=== PATIENT | male | born 1950 | race Caucasian/White ===

== ENCOUNTER 2020-01-08 11:28 | Outpatient (CLI) | payer MEDICARE, SELFPAY ==
--- NOTE | ~2020-01-08 | XR_ITS ---
EXAMINATION: XR patella LT DATE: 01/08/2020 11:56 INDICATION: Left knee pain TECHNIQUE: AP, lateral and sunrise views of the left patella were obtained. COMPARISON: Left knee radiographs dated 06/09/2005 FINDINGS: Alignment is normal. No fracture. Joint space at the left including the patellofemoral compartment ar e normal. Tiny patellar marginal osteophytes are present. No left knee joint effusion. Unchanged bone island at the medial femoral condyle. IMPRESSION: 1. Minimal left patellofemoral osteoarthritis with tiny marginal osteophytes but relatively preserved joint space. Reviewed, dictated and finalized at location B. IMPRESSION: 1. Minimal left patellofemoral osteoarthritis with tiny marginal osteophytes bu t relatively preserved joint space.
== END 2020-01-08 11:29 | disposition home or self-care (01) ==
PROVIDERS: PCP Family Medicine; Visit Provider Family Medicine
DX: M17.12 Unilateral primary osteoarthritis, left knee (principal); M25.762 Osteophyte, left knee
CPT/HCPCS: 73560

== ENCOUNTER 2020-07-06 07:43 | Outpatient (CLI) | payer MEDICARE, SELFPAY ==
--- NOTE | ~2020-07-06 | XR_ITS ---
EXAMINATION: XR cervical spine min 6V EXAM DATE: 07/06/2020 08:11 INDICATION: Cervicalgia. TECHNIQUE: Cervical spine frontal, lateral, lateral swimmers, and open-mouth odontoid projections. A dditional lateral flexion and lateral extension projections obtained. Comparison is made to prior exa mination from 12/07/2016. FINDINGS: Osseous fusion of the C3-4 vertebral bodies. Moderate disc disease C5-6 and 6-7, mild to m oderate at C3-4. Vertebral bodies are aligned on all the lateral projections. There is moderate to se jerome cervical arthropathy, could correlate with patient's MR cervical spine report from 2019. There are no acute fractures identified. Prevertebral soft tissue and pre-dens space are within nor mal limits. The odontoid process is intact. The lateral masses of C1 line up with C2. Compared to 20 17, difficult to appreciate any significant interval change. IMPRESSION: 1. Moderate lower cervical disc disease. Moderate to severe arthropathy. 2. Correlate with patient's prior MR 2019. Reviewed, dictated and finalized at location A.
[2020-07-06 08:26] LABS: Eosinophils Absolute Auto 0.1 K/mm3 (0-0.3); Eosinophils Percent Auto 2.9 % (0-4.4); Hematocrit 42.4 % (42.0-52.0); Hemoglobin 14.2 g/dL (14.0-18.0); Immature Granulocyte Absolute 0.01 K/mm3 (0.00-0.031); Immature Granulocyte Percent A 0.2 % (0-0.5); Lymphocytes Absolute Auto 1.35 K/mm3 (0.9-3.2); Lymphocytes Percent Auto 33.2 % (18.3-44.2); Mean Corpuscular HGB Conc 33.5 g/dl (32-36); Mean Corpuscular Hemoglobin 32.1 pg (26-34); Mean Corpuscular Volume 95.7 fl (80-100); Mean Platelet Volume 9.5 fl (7.4-10.4); Monocytes Absolute Auto 0.5 K/mm3 (0.1-0.6); Monocytes Percent Auto 11.1 % (2.6-8.5); Neutrophils Absolute Auto 2.1 K/mm3 (1.3-6.7); Neutrophils Percent Auto 51.6 % (45.5-73.1); Platelet Count Result 246 k/mm3 (150-375); Red Blood Count 4.43 M/mm3 (4.6-6.20); Red Cell Distribution Width 12.8 % (11.5-14.5); White Blood Count 4.1 K/mm3 (4.5-10.0)
[2020-07-06 08:41] LABS: Alanine Aminotransferase 33 U/L (4-50); Albumin Level 4.5 g/dL (3.5-5.1); Alkaline Phosphatase 54 U/L (38-126); Anion Gap 5 mmol/L (8-16); Aspartate Amino Transferase 34 U/L (17-59); Bilirubin,Total 0.5 mg/dL (0.2-1.3); Blood Urea Nitrogen 14 mg/dL (9-20); Calcium 9.1 mg/dL (8.4-10.2); Carbon Dioxide 30 mmol/L (22-30); Chloride 106 mmol/L (98-107); Cholesterol 114 mg/dL (0-200); Estimated Glomerular Filt Rate > 60; Glucose 112 mg/dL (75-110); HDL Direct 51 mg/dL; Potassium 4.4 mmol/L (3.4-5.0); Sodium 141 mmol/L (137-145); Triglycerides 90 mg/dL (<150); Uric Acid 3.9 mg/dL (3.5-8.5)
[2020-07-06 08:52] LABS: LDL Cholesterol Direct 45 mg/dL
[2020-07-06 09:12] LABS: Prostate Specific Antigen 1.7 ng/mL (< OR = 4.0)
== END 2020-07-06 07:44 | disposition home or self-care (01) ==
PROVIDERS: PCP Family Medicine; Visit Provider Family Medicine
DX: M54.2 Cervicalgia (principal); I10 Essential (primary) hypertension; E78.2 Mixed hyperlipidemia; Z13.220 Encounter for screening for lipoid disorders; N40.0 Benign prostatic hyperplasia without lower urinary tract symptoms; G62.9 Polyneuropathy, unspecified; M1A.09X0 Idiopathic chronic gout, multiple sites, without tophus (tophi); M50.30 Other cervical disc degeneration, unspecified cervical region
CPT/HCPCS: 36415; 72052; 80048; 80061; 80076; 82607; 84153; 84443; 84550; 85025

== ENCOUNTER 2020-08-05 08:20 | Outpatient (CLI) | payer MEDICARE, SELFPAY ==
[2020-08-05 09:21] LABS: Basophils Percent Auto 0.7 % (0.2-1.2); Eosinophils Absolute Auto 0.2 K/mm3 (0-0.3); Eosinophils Percent Auto 3.6 % (0-4.4); Hematocrit 44.7 % (42.0-52.0); Hemoglobin 14.7 g/dL (14.0-18.0); Immature Granulocyte Absolute 0.01 K/mm3 (0.00-0.031); Immature Granulocyte Percent A 0.2 % (0-0.5); Lymphocytes Absolute Auto 1.14 K/mm3 (0.9-3.2); Lymphocytes Percent Auto 25.7 % (18.3-44.2); Mean Corpuscular HGB Conc 32.9 g/dl (32-36); Mean Corpuscular Hemoglobin 31.7 pg (26-34); Mean Corpuscular Volume 96.3 fl (80-100); Mean Platelet Volume 9.8 fl (7.4-10.4); Monocytes Absolute Auto 0.4 K/mm3 (0.1-0.6); Monocytes Percent Auto 9.7 % (2.6-8.5); Neutrophils Absolute Auto 2.7 K/mm3 (1.3-6.7); Neutrophils Percent Auto 60.1 % (45.5-73.1); Platelet Count Result 220 k/mm3 (150-375); Red Blood Count 4.64 M/mm3 (4.6-6.20); White Blood Count 4.4 K/mm3 (4.5-10.0)
[2020-08-05 10:12] LABS: Hemoglobin A1C 5.7 % (<5.7)
== END 2020-08-05 08:21 | disposition home or self-care (01) ==
LOC: ANHLAB 08:24
PROVIDERS: PCP Family Medicine; Visit Provider Physician Assistant Medical
DX: D72.819 Decreased white blood cell count, unspecified (principal); R73.09 Other abnormal glucose
CPT/HCPCS: 36415; 83036; 85025

== ENCOUNTER 2020-11-05 07:38 | Outpatient (CLI) | payer MEDICARE, SELFPAY ==
[2020-11-05 08:24] LABS: Basophils Percent Auto 0.7 % (0.2-1.2); Eosinophils Absolute Auto 0.2 K/mm3 (0-0.3); Eosinophils Percent Auto 3.7 % (0-4.4); Hematocrit 43.8 % (42.0-52.0); Hemoglobin 14.2 g/dL (14.0-18.0); Immature Granulocyte Absolute 0.01 K/mm3 (0.00-0.031); Immature Granulocyte Percent A 0.2 % (0-0.5); Lymphocytes Absolute Auto 1.37 K/mm3 (0.9-3.2); Mean Corpuscular HGB Conc 32.4 g/dl (32-36); Mean Corpuscular Hemoglobin 30.9 pg (26-34); Mean Corpuscular Volume 95.4 fl (80-100); Mean Platelet Volume 9.7 fl (7.4-10.4); Monocytes Absolute Auto 0.4 K/mm3 (0.1-0.6); Monocytes Percent Auto 10.7 % (2.6-8.5); Neutrophils Percent Auto 50.7 % (45.5-73.1); Platelet Count Result 213 k/mm3 (150-375); Red Blood Count 4.59 M/mm3 (4.6-6.20); Red Cell Distribution Width 13.2 % (11.5-14.5)
[2020-11-05 09:46] LABS: Hemoglobin A1C 5.8 % (<5.7)
== END 2020-11-05 07:39 | disposition home or self-care (01) ==
PROVIDERS: PCP Family Medicine; Visit Provider Physician Assistant Medical
DX: D72.819 Decreased white blood cell count, unspecified (principal); R73.03 Prediabetes
CPT/HCPCS: 36415; 83036; 85025

== ENCOUNTER 2020-11-30 12:33 | Outpatient (CLI) | payer MEDICARE, SELFPAY ==
[2020-11-30 13:30] LABS: Basophils Absolute Auto 0.1 K/mm3 (0.0-0.1); Eosinophils Absolute Auto 0.1 K/mm3 (0-0.3); Eosinophils Percent Auto 2.8 % (0-4.4); Hematocrit 42.8 % (42.0-52.0); Hemoglobin 14.1 g/dL (14.0-18.0); Immature Granulocyte Absolute 0.01 K/mm3 (0.00-0.031); Immature Granulocyte Percent A 0.2 % (0-0.5); Lymphocytes Absolute Auto 1.47 K/mm3 (0.9-3.2); Lymphocytes Percent Auto 29.7 % (18.3-44.2); Mean Corpuscular HGB Conc 32.9 g/dl (32-36); Mean Corpuscular Hemoglobin 31.3 pg (26-34); Mean Corpuscular Volume 94.9 fl (80-100); Mean Platelet Volume 10.2 fl (7.4-10.4); Monocytes Absolute Auto 0.4 K/mm3 (0.1-0.6); Monocytes Percent Auto 8.5 % (2.6-8.5); Neutrophils Absolute Auto 2.9 K/mm3 (1.3-6.7); Neutrophils Percent Auto 57.8 % (45.5-73.1); Platelet Count Result 231 k/mm3 (150-375); Red Blood Count 4.51 M/mm3 (4.6-6.20)
--- NOTE | 2020-11-30 13:34 | PC.NURSE ---
Patient was in the lab to have blood work drawn, and became clammy and the product support technician state he had 10-15 seconds of Loss of consciousness, VS per Cassia Strickland RN was at 1305: BP 90/50, Pulse 52, Respiratory rate 14, and O2sats 99% on Room air. Brought to infusion center per RN and Lab staff, placed in the bed, cool wash cloth to forehead and feet elevated. I received him from DEAN AVILA whom tried to call Dr Salas but did not receive any call backs. He was awake and alert orientated x 3, he stayed flat to have his labs drawn. VS at 1325: Pulse 66, Respiratory rate 20, Pulse ox on Room air 100%m and Blood pressure on Right arm 130/65. Patient moved to a sitting position and after 5 minutes moved to a standing position. He stated he feels better and will be drinking more water this evening. He refused a wheelchair out to the car.
[2020-11-30 20:39] LABS: Alanine Aminotransferase 42 U/L (4-50); Albumin Level 4.5 g/dL (3.5-5.1); Alkaline Phosphatase 60 U/L (38-126); Anion Gap 9 mmol/L (8-16); Aspartate Amino Transferase 35 U/L (17-59); Bilirubin,Total 0.4 mg/dL (0.2-1.3); Blood Urea Nitrogen 19 mg/dL (9-20); Calcium 9.7 mg/dL (8.4-10.2); Carbon Dioxide 24 mmol/L (22-30); Chloride 104 mmol/L (98-107); Estimated Glomerular Filt Rate > 60; Glucose 115 mg/dL (65-110); Potassium 4.3 mmol/L (3.4-5.0); Sodium 137 mmol/L (137-145)
[2020-11-30 20:43] LABS: Iron 92 ug/dL (49-181)
[2020-11-30 20:58] LABS: Percent Iron Saturation 26 % (20-50)
[2020-11-30 21:45] LABS: Folic Acid 9.6 ng/mL (2.76->20)
== END 2020-11-30 12:34 | disposition home or self-care (01) ==
PROVIDERS: PCP Family Medicine; Visit Provider Internal Medicine Hematology & Oncology
DX: D72.819 Decreased white blood cell count, unspecified (principal); D50.9 Iron deficiency anemia, unspecified
CPT/HCPCS: 36415; 80053; 82607; 82728; 82746; 83540; 83550; 85025; 86038

== ENCOUNTER 2020-12-17 08:05 | Outpatient (CLI) | payer MEDICARE, SELFPAY ==
--- NOTE | ~2020-12-17 | US_ITS ---
EXAMINATION: US abdomen complete EXAM DATE: 12/17/2020 09:02 INDICATION: Unspecified leukopenia. TECHNIQUE: Multiple grayscale and Doppler images of the complete abdomen were obtained (by a technolo gist who performed the scan) and subsequently reviewed. There is no prior study for comparison. FINDINGS: The abdominal aorta has mild tortuosity and atherosclerosis, but is normal in caliber. Visualized p ortion IVC is patent. The pancreatic head and body are normal in appearance. The pancreatic tail i s not visualized. The liver has normal echogenicity and contour. There are no focal liver lesions identified. There is no evidence of intrahepatic biliary duct dilation. Portal venous flow was seen in the hepatopedal , normal direction and has normal Doppler waveform. Common bile duct measures 2 mm, which is normal. The gallbladder wall is mildly thickened but probabl y due to gallbladder being undistended at time of imaging. No sonographic evidence of pericholecysti c fluid. There is no cholelithiases. Technologist performing exam reports patient did not demonstrat e sonographic Gomez's sign. Please note that this sign is less reliable in patients who have receiv ed pain medication. Right kidney: There is normal contour and echogenicity. It measures 11.4 x 5.1 x 6.1 centimeters. There are no focal renal lesions identified. There is no hydronephrosis. Left kidney: There is normal contour and echogenicity. It measures 11.0 x 5.8 x 6.4 centimeters. T here are no focal renal lesions identified. There is no hydronephrosis. The spleen measures 11.8 centimeters and is morphologically normal. IMPRESSION: 1. Unremarkable complete abdominal ultrasound exam. Reviewed, dictated and finalized at location B.
== END 2020-12-17 08:06 | disposition home or self-care (01) ==
PROVIDERS: PCP Family Medicine; Visit Provider Internal Medicine Hematology & Oncology
DX: D72.819 Decreased white blood cell count, unspecified (principal)
CPT/HCPCS: 76700

== ENCOUNTER 2021-06-08 08:47 | Outpatient (CLI) | payer MEDICARE, SELFPAY ==
[2021-06-08 09:30] LABS: Basophils Absolute Auto 0.1 K/mm3 (0.0-0.1); Basophils Percent Auto 1.2 % (0.2-1.2); Eosinophils Absolute Auto 0.2 K/mm3 (0-0.3); Eosinophils Percent Auto 3.7 % (0-4.4); Hematocrit 43.2 % (42.0-52.0); Hemoglobin 14.2 g/dL (14.0-18.0); Lymphocytes Absolute Auto 1.23 K/mm3 (0.9-3.2); Lymphocytes Percent Auto 30.6 % (18.3-44.2); Mean Corpuscular HGB Conc 32.9 g/dl (32-36); Mean Corpuscular Hemoglobin 32.1 pg (26-34); Mean Corpuscular Volume 97.7 fl (80-100); Monocytes Absolute Auto 0.3 K/mm3 (0.1-0.6); Monocytes Percent Auto 8.5 % (2.6-8.5); Neutrophils Absolute Auto 2.3 K/mm3 (1.3-6.7); Platelet Count Result 196 k/mm3 (150-375); Red Blood Count 4.42 M/mm3 (4.6-6.20); Red Cell Distribution Width 13.2 % (11.5-14.5)
[2021-06-08 10:51] LABS: Folic Acid 15.7 ng/mL (2.76->20)
== END 2021-06-08 08:48 | disposition home or self-care (01) ==
LOC: ANHLAB 08:53
PROVIDERS: PCP Family Medicine; Visit Provider Internal Medicine Hematology & Oncology
DX: D72.819 Decreased white blood cell count, unspecified (principal)
CPT/HCPCS: 36415; 82607; 82746; 85025

== ENCOUNTER 2021-12-06 08:01 | Outpatient (CLI) | payer MEDICARE, SELFPAY ==
[2021-12-06 08:16] LABS: Hematocrit 42.9 % (42.0-52.0); Mean Corpuscular HGB Conc 32.6 g/dl (32-36); Mean Corpuscular Hemoglobin 31.7 pg (26-34); Mean Corpuscular Volume 97.3 fl (80-100); Mean Platelet Volume 9.7 fl (7.4-10.4); Platelet Count Result 208 k/mm3 (150-375); Red Blood Count 4.41 M/mm3 (4.6-6.20); Red Cell Distribution Width 13.2 % (11.5-14.5); White Blood Count 4.6 K/mm3 (4.5-10.0)
[2021-12-06 09:13] LABS: Alanine Aminotransferase 43 U/L (6-50); Albumin Level 4.6 g/dL (3.5-5.1); Alkaline Phosphatase 64 U/L (38-126); Anion Gap 10 mmol/L (8-16); Aspartate Amino Transferase 38 U/L (17-59); Bilirubin,Total 0.4 mg/dL (0.2-1.3); Blood Urea Nitrogen 18 mg/dL (9-20); Calcium 9.5 mg/dL (8.4-10.2); Carbon Dioxide 27 mmol/L (22-30); Chloride 104 mmol/L (98-107); Cholesterol 144 mg/dL (0-200); Estimated Glomerular Filt Rate > 60; Glucose 103 mg/dL (65-110); HDL Direct 60 mg/dL; Potassium 3.8 mmol/L (3.4-5.0); Sodium 141 mmol/L (137-145); Triglycerides 110 mg/dL (<150); Uric Acid 4.6 mg/dL (3.5-8.5)
[2021-12-06 09:25] LABS: LDL Cholesterol Direct 50 mg/dL
[2021-12-06 09:43] LABS: Prostate Specific Antigen 1.1 ng/mL (< OR = 4.0)
== END 2021-12-06 08:02 | disposition home or self-care (01) ==
PROVIDERS: PCP Family Medicine; Visit Provider Family Medicine
DX: G62.9 Polyneuropathy, unspecified (principal); I10 Essential (primary) hypertension; E78.2 Mixed hyperlipidemia; Z13.220 Encounter for screening for lipoid disorders; N40.0 Benign prostatic hyperplasia without lower urinary tract symptoms; Z12.5 Encounter for screening for malignant neoplasm of prostate; M1A.09X0 Idiopathic chronic gout, multiple sites, without tophus (tophi)
CPT/HCPCS: 36415; 80048; 80061; 80076; 82607; 84153; 84443; 84550; 85027; G0103

== ENCOUNTER 2022-02-13 08:32 | Outpatient (CLI) | payer MEDICARE, SELFPAY ==
--- NOTE | 2022-03-06 10:01 | WPDSLEEPSTUD ---
Sleep Study Date of Study: 02/13/22 Ordering Provider: Samm Null MD Interpreting Physician: Melissa Agustin MD Sleep Study Type: Split Polysomnogram Height: 1.73 m Weight: 86.183 kg Body Mass Index: 28.8 Neck Circumference (inches): 16.5 [place]: 9 Reason for Sleep Study Constantly feeling tired, difficulty sleeping Sleep History Suhas Renner is a 71-year-old who has poor quality sleep. He has racing thoughts when it is time to go to sleep. He does not awaken from sleep feeling short of breath. Occasionally he has heartburn belching or coughing at night that wakes him. He rarely snores and it is left never loud enough to bother others, occasionally has trouble sleeping with a cold, there is no shortness of breath or gasping for breath at night. Occasionally there is excessive sweating at night. Patient denies heart pounding or beating irregularly at night. He frequently falls asleep during the day, occasionally falls asleep involuntarily, never falls asleep while driving. There is no loss of muscle tone with strong emotion. There is no daytime difficulties due to excessive sleepiness. There is no paralysis on waking or falling asleep and no vivid dreamlike scenes upon awakening or falling asleep. Patient is not afraid to go to sleep. He occasionally has nightmares. He frequently remembers his dreams and has racing thoughts. He occasionally feels sad or depressed. He frequently has anxiety. He occasionally has muscular tension. He rarely notices parts of his body jerking. He occasionally kicks at night, occasionally has crawling and aching feelings in his legs and leg pain at night. He does not have morning jaw pain. He occasionally grinds his teeth during sleep. He constantly is bothered by pain during the day. He occasionally is awakened by pain at night. He frequently wakes up feeling stiff in the morning. He occasionally wakes up with sore achy muscles. He constantly wakes up with pain in the neck and spine. Normal bedtime is between 9:00 p.m. and 10:00 p.m. taking an hour to fall asleep typically waking 2 to 3 times to urinate. He wakes the morning between 4 and 5:00 a.m.. He takes naps in the afternoon or evening. A short nap lasting 10 or 15 minutes is not refreshing. He is usually drowsy for 3 hours or longer after waking. He feels better in the evening compared to other times of day. He frequently has memory or concentration problems. He occasionally has morning headaches. He never awakens feeling refreshed. Habits: caffeine 4-5 cups a day. Alcohol 5-6 beers a day. No recreational drugs. [facility] Past Medical History Medical History Apnea BMI 27.0-27.9,adult BMI 28.0-28.9,adult BPH (benign prostatic hyperplasia) Essential (primary) hypertension Insect bite Joint pain Mixed hyperlipidemia Mucous cyst of toe Patellar pain Viral wart on finger Family History Family History Mother Carcinoma of colon Sibling Carcinoma of colon Family history of lung cancer Family history of heart disease in male family member before age 55 Social History Social History Smoking status: Never smoker Alcohol intake: never Medications Home Medications Medication Instructions Recorded Confirmed Type aspirin 81 mg tablet,delayed 81 mg PO DAILY 01/08/20 01/13/22 History release (Adult Low Dose Aspirin) rosuvastatin 20 mg tablet See Rx Instructions .Route 09/01/21 01/13/22 Rx .COMPLEX #90 tabs tamsulosin 0.4 mg capsule (Flomax) 0.4 mg PO DAILY #90 caps 10/13/21 01/13/22 Rx cyanocobalamin (vitamin B-12) 1,000 mcg PO DAILY 12/02/21 01/13/22 History 1,000 mcg tablet (Vitamin B-12) allopurinol 300 mg tablet See Rx Instructions .Route 12/14/21 01/13/22 Rx .COMPLEX #90 tabs amlodipine 5 mg tablet See Rx Instructi
[2022-03-06 11:46] VITALS: BMI 28.8
== END 2022-02-14 06:32 | disposition home or self-care (01) ==
LOC: ANHCSM 08:33
PROVIDERS: PCP Family Medicine; Visit Provider Family Medicine
DX: G47.30 Sleep apnea, unspecified (principal); G47.33 Obstructive sleep apnea (adult) (pediatric)
CPT/HCPCS: 95811

== ENCOUNTER 2023-03-28 09:15 | Outpatient (CLI) | payer MEDICARE, SELFPAY ==
--- NOTE | 2023-03-28 10:15 | NEURO_ITS ---
Impression: # Borderline diabetic complains of lower back pain and numbness of lower extremities. # Normal motor and sensory Nerve Conduction Study. # Normal needle/EMG without myotonia, fibrillations or chronic degenerative changes. # Clinical correlation recommended. Possibility of small fiber neuropathy. Nerve Conduction Studies Anti Sensory Summary Table Stim Site NR Peak (ms) P-T Amp (?V) Site1 Site2 Delta-P (ms) Dist (cm) Kirit (m/s) Left Saphenous Anti Sensory (Ant Med Mall) 14cm 3.8 1.8 14cm Ant Med Mall 3.8 0.0 Right Saphenous Anti Sensory (Ant Med Mall) 14cm 3.8 7.6 14cm Ant Med Mall 3.8 0.0 Left Sup Fibular Anti Sensory (Ant Lat Mall) 14 cm 3.6 12.5 14 cm Ant Lat Mall 3.6 16.0 44 Right Sup Fibular Anti Sensory (Ant Lat Mall) 14 cm 3.5 3.6 14 cm Ant Lat Mall 3.5 16.0 46 Left Sural Anti Sensory (Lat Mall) Calf 3.7 4.3 Calf Lat Mall 3.7 16.0 43 Right Sural Anti Sensory (Lat Mall) Calf 3.9 14.3 Calf Lat Mall 3.9 16.0 41 Motor Summary Table Stim Site NR Onset (ms) O-P Amp (mV) Site1 Site2 Delta-0 (ms) Dist (cm) Kirit (m/s) Left Peroneal Motor (Vastus Med) Ankle 3.6 2.1 Popit Ankle 8.3 35.0 42 Popit 11.9 1.5 Right Peroneal Motor (Vastus Med) Ankle 3.6 5.8 Popit Ankle 8.1 38.0 47 Popit 11.7 4.4 Left Tibial Motor (Abd Riggs Brev) Ankle 4.0 3.3 Knee Ankle 8.8 40.0 45 Knee 12.8 3.3 Right Tibial Motor (Abd Riggs Brev) Ankle 4.1 3.2 Knee Ankle 8.6 41.0 48 Knee 12.7 3.1 F Wave Studies NR F-Lat (ms) L-R F-Lat (ms) Left Peroneal (Mrkrs) (EDB) 54.33 0.04 Right Peroneal (Mrkrs) (EDB) 54.36 0.04 Left Tibial (Mrkrs) (Abd Hallucis) 55.01 0.72 Right Tibial (Mrkrs) (Abd Hallucis) 54.29 0.72 EMG Side Muscle Nerve Root Ins Act Fibs Amp Dur Recrt Comment Right AntTibialis Dp Br Fibular L4-5 Nml Nml Nml Nml Nml Right Gastroc Tibial S1-2 Nml Nml Nml Nml Nml Right Fibularis Long Sup Br Fibular L5-S1 Nml Nml Nml Nml Nml Right Flex Dig Long Tibial L5-S2 Nml Nml Nml Nml Nml Right Ext Dig Brev Dp Br Fibular L5, S1 Nml Nml Nml Nml Nml Left AntTibialis Dp Br Fibular L4-5 Nml Nml Nml Nml Nml Left Gastroc Tibial S1-2 Nml Nml Nml Nml Nml Left Fibularis Long Sup Br Fibular L5-S1 Nml Nml Nml Nml Nml Left Flex Dig Long Tibial L5-S2 Nml Nml Nml Nml Nml Left Ext Dig Brev Dp Br Fibular L5, S1 Nml Nml Nml Nml Nml MTDD
== END 2023-03-28 09:16 | disposition home or self-care (01) ==
LOC: ANHNEURO 09:16
PROVIDERS: PCP Family Medicine; Visit Provider Student in an Organized Health Care Education/Training Program
DX: R20.0 Anesthesia of skin (principal)
CPT/HCPCS: 95886; 95911

== ENCOUNTER 2023-05-09 09:40 | Outpatient (CLI) | payer MEDICARE, SELFPAY ==
[2023-05-09 10:44] LABS: Basophils Percent Auto 0.7 % (0.2-1.2); Eosinophils Absolute Auto 0.1 K/mm3 (0-0.3); Eosinophils Percent Auto 2.5 % (0-4.4); Hematocrit 45.6 % (42.0-52.0); Immature Granulocyte Absolute 0.02 K/mm3 (0.00-0.031); Immature Granulocyte Percent A 0.4 % (0-0.5); Lymphocytes Absolute Auto 1.32 K/mm3 (0.9-3.2); Lymphocytes Percent Auto 23.4 % (18.3-44.2); Mean Corpuscular HGB Conc 32.9 g/dl (32-36); Mean Corpuscular Hemoglobin 32.2 pg (26-34); Mean Corpuscular Volume 97.9 fl (80-100); Mean Platelet Volume 9.9 fl (7.4-10.4); Monocytes Absolute Auto 0.5 K/mm3 (0.1-0.6); Monocytes Percent Auto 8.5 % (2.6-8.5); Neutrophils Absolute Auto 3.6 K/mm3 (1.3-6.7); Neutrophils Percent Auto 64.5 % (45.5-73.1); Platelet Count Result 225 k/mm3 (150-375); Red Blood Count 4.66 M/mm3 (4.6-6.20); Red Cell Distribution Width 13.2 % (11.5-14.5); White Blood Count 5.6 K/mm3 (4.5-10.0)
[2023-05-09 12:05] LABS: Alanine Aminotransferase 38 U/L (6-50); Albumin Level 4.8 g/dL (3.5-5.1); Alkaline Phosphatase 62 U/L (38-126); Anion Gap 10 mmol/L (8-16); Aspartate Amino Transferase 53 U/L (17-59); Bilirubin,Total 0.6 mg/dL (0.2-1.3); Blood Urea Nitrogen 14 mg/dL (9-20); Calcium 10.1 mg/dL (8.4-10.2); Carbon Dioxide 24 mmol/L (22-30); Chloride 107 mmol/L (98-107); Estimated Glomerular Filt Rate > 60; Glucose 124 mg/dL (65-110); Potassium 3.9 mmol/L (3.4-5.0); Sodium 141 mmol/L (137-145)
[2023-05-09 13:19] LABS: Folic Acid 13.8 ng/mL (2.76->20)
[2023-05-09 14:10] LABS: Hemoglobin A1C 5.7 % (<5.7)
[2023-05-13 11:22] LABS: SS-A <1.0; SS-B <1.0
[2023-05-13 12:49] LABS: Vitamin B6 18.5 ng/mL (2.1-21.7)
[2023-05-14 12:53] LABS: Vitamin B1 11 nmol/L (8-30)
== END 2023-05-09 09:41 | disposition home or self-care (01) ==
PROVIDERS: PCP Family Medicine; Visit Provider Student in an Organized Health Care Education/Training Program
DX: G62.9 Polyneuropathy, unspecified (principal); Z68.27 Body mass index [BMI] 27.0-27.9, adult; R73.09 Other abnormal glucose; R73.03 Prediabetes
CPT/HCPCS: 36415; 80053; 82607; 82746; 83036; 84207; 84425; 84443; 85025; 86038; 86235; 86334; 86335

== ENCOUNTER 2023-07-18 07:42 | Outpatient (CLI) | payer MEDICARE, SELFPAY ==
[2023-07-18 08:32] LABS: Alanine Aminotransferase 33 U/L (6-50); Albumin Level 4.7 g/dL (3.5-5.1); Alkaline Phosphatase 64 U/L (38-126); Aspartate Amino Transferase 35 U/L (17-59); Bilirubin,Total 0.8 mg/dL (0.2-1.3); Cholesterol 147 mg/dL (0-200); HDL Direct 77 mg/dL; Triglycerides 153 mg/dL (<150); Uric Acid 4.2 mg/dL (3.5-8.5)
[2023-07-18 08:43] LABS: LDL Cholesterol Direct 52 mg/dL
[2023-07-18 09:02] LABS: Prostate Specific Antigen 1.5 ng/mL (< OR = 4.0)
== END 2023-07-18 07:43 | disposition home or self-care (01) ==
LOC: ANHLAB 07:48
PROVIDERS: PCP Family Medicine; Visit Provider Family Medicine
DX: Z12.5 Encounter for screening for malignant neoplasm of prostate (principal); N40.1 Benign prostatic hyperplasia with lower urinary tract symptoms; R35.1 Nocturia; M1A.09X0 Idiopathic chronic gout, multiple sites, without tophus (tophi); E78.2 Mixed hyperlipidemia; Z13.220 Encounter for screening for lipoid disorders
CPT/HCPCS: 36415; 80061; 80076; 84153; 84550; G0103

== ENCOUNTER 2023-10-16 02:50 | Day surgery (SDC) | payer MEDICARE, SELFPAY ==
[2023-10-02 14:50] VITALS: BMI 29.1
[2023-10-16 07:13] VITALS: BP 160/76; PULSE 86; RESP 18; TEMP 36.3; O2SAT 99; BMI 28.3
[2023-10-16] MEDS: LACTATED RINGERS 1,000 ML 150 ML IV CONT (07:21)
--- NOTE | 2023-10-16 07:24 | WPDANESEPPF ---
Anes - Initial Pre Proc Eval Procedure: Operation Date: 10/16/23 08:30 Proposed Procedures p Screening Colonoscopy - Oc Akbar DO Date/Time: 10/16/23 07:24 Surgeon: Oc Akbar DO Pre Op Diagnosis: Neoplasm screening Patient Data Age: 73 Gender: M Height: 1.73 m Weight: 84.7 kg Last Vital Signs Temp 36.3 C L 10/16/23 07:13 Pulse 86 10/16/23 07:13 Resp 18 10/16/23 07:13 BP 160/76 H 10/16/23 07:13 Pulse Ox 99 10/16/23 07:13 O2 Del Method Room Air 10/16/23 07:13 Allergies Allergy/AdvReac Type Severity Reaction Status Date / Time Corticosteroids Allergy Severe PAIN Verified 10/16/23 07:12 (Glucocorticoids) methylprednisolone Allergy Unknown Muscle Pain Verified 10/16/23 07:12 Home Medications Medication Instructions Recorded Confirmed Type aspirin 81 mg tablet,delayed 81 mg PO DAILY 01/08/20 10/16/23 History release (Adult Low Dose Aspirin) cyanocobalamin (vitamin B-12) 1,000 mcg PO DAILY 12/02/21 10/16/23 History 1,000 mcg tablet (Vitamin B-12) rosuvastatin 20 mg tablet See Rx Instructions .Route 05/29/23 10/16/23 Rx .COMPLEX #90 tabs allopurinol 300 mg tablet See Rx Instructions .Route 06/10/23 10/16/23 Rx .COMPLEX #90 tabs amlodipine 5 mg tablet See Rx Instructions .Route 06/10/23 10/16/23 Rx .COMPLEX #90 tabs losartan 50 mg tablet See Rx Instructions .Route 06/10/23 10/16/23 Rx .COMPLEX #90 tabs tamsulosin 0.4 mg capsule (Flomax) 0.4 mg PO DAILY #90 caps 07/16/23 10/16/23 Rx clotrimazole-betamethasone 1 1 applic topical BID #45 grams 07/31/23 10/16/23 Rx %-0.05 % topical cream Patient hx anesthesia problems: none Family hx anesthesia problems: none Results Review: All pre-operative results and documents have been reviewed as part of the pre-operative evaluation. [facility] Past Medical History Medical History Apnea BMI (body mass index) 20.0-29.9 BMI 27.0-27.9,adult BMI 28.0-28.9,adult BPH (benign prostatic hyperplasia) Dermatitis Essential (primary) hypertension Hx of cataract Insect bite Joint pain Mixed hyperlipidemia Mucous cyst of toe Patellar pain Viral wart on finger Surgical History Surgical History History of bunionectomy History of hip surgery History of shoulder surgery Family History Family History Mother Carcinoma of colon Sibling Carcinoma of colon Family history of lung cancer Family history of heart disease in male family member before age 55 Tobacco abuse Father , Natural causes 88 years old. No problems noted. Sibling Heart disease Colon polyp Social History Social History Smoking status: Never smoker Tobacco type: smokeless tobacco Second hand tobacco smoke exposure: Yes Alcohol intake: current Drinks per week: 12 Alcohol use details: Pt unspecific on amount Substance use: never Substance use type: does not use Do You Feel Safe in your Home?: Yes Lack of Transportation: No Lack of Food: Never True Current Housing: I Have Housing Concerned About Future Housing: No Difficulty Paying Gas/Electric Bills: No Difficulty Paying for Meds: No Education: High School Diploma/GED Difficulty w/ Childcare or Family Care: No Living arrangements: with family Occupation/Education: retired Additional occupation/education comments: [employer] Gender identity (if verbalized by the patient): Male Spiritual care concerns: No Anes - Eval Final PreProcedure Day of Procedure 10/16/23 07:24 Patient weight: overweight Heart: regular rate and rhythm Lungs: clear to auscultation Airway: Mallampati scale class II Neurological: alert and oriented Last oral intake: >/= 8 hours ASA classification: III Emerge
--- NOTE | 2023-10-16 07:32 | SUR.PREOP ---
Patient reports eating eggs and toast yesterday morning for breakfast. Stools clear/yellow. Dr. Akbar notified.
--- NOTE | 2023-10-16 08:17 | PM.IMHP ---
H&P: HPI History of Present Illness Date/Time: 10/16/23 08:17 Chief Complaint: family history of colon cancer Narrative: this is a 73-year-old man who presents for colonoscopy. His last colonoscopy was fiber 6 years ago. He denies any hematochezia or melena. He does have family history of colon cancer in his mother and brother. Review of Systems Review of Systems: All systems reviewed & are unremarkable except as noted in HPI and below Constitutional: Constitutional: Denies chills, Denies fever(s), Denies headache(s) and Denies weight loss Eyes: Eyes: Denies change in vision ENT: Denies dizziness, Denies headache(s), Denies neck mass and Denies throat swelling Cardiovascular: Cardiovascular: Denies chest pain, Denies lightheadedness and Denies dyspnea Respiratory: Respiratory: Denies cough, Denies dyspnea and Denies wheezing Gastrointestinal: Gastrointestinal: Denies abdominal pain, Denies change in bowel habits, Denies nausea and Denies vomiting Genitourinary: Genitourinary: Denies hematuria and Denies dysuria Musculoskeletal: Musculoskeletal: Reports as per HPI Integumentary/Breasts: Skin/Breast: Reports as per HPI Neurologic: Denies dizziness and Denies headache(s) Allergic/Immunologic: Allergic/Immunologic: Denies throat swelling and Denies wheezing PMF Past Medical History Medical History Apnea BMI (body mass index) 20.0-29.9 BMI 27.0-27.9,adult BMI 28.0-28.9,adult BPH (benign prostatic hyperplasia) Dermatitis Essential (primary) hypertension Hx of cataract Insect bite Joint pain Mixed hyperlipidemia Mucous cyst of toe Patellar pain Viral wart on finger Surgical History Surgical History History of bunionectomy History of hip surgery History of shoulder surgery Family History Family History Mother Carcinoma of colon Sibling Carcinoma of colon Family history of lung cancer Family history of heart disease in male family member before age 55 Tobacco abuse Father , Natural causes 88 years old. No problems noted. Sibling Heart disease Colon polyp Social History Social History Smoking status: Never smoker Tobacco type: smokeless tobacco Second hand tobacco smoke exposure: Yes Alcohol intake: current Drinks per week: 12 Alcohol use details: Pt unspecific on amount Substance use: never Substance use type: does not use Do You Feel Safe in your Home?: Yes Lack of Transportation: No Lack of Food: Never True Current Housing: I Have Housing Concerned About Future Housing: No Difficulty Paying Gas/Electric Bills: No Difficulty Paying for Meds: No Education: High School Diploma/GED Difficulty w/ Childcare or Family Care: No Living arrangements: with family Occupation/Education: retired 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 Gender identity (if verbalized by the patient): Male Spiritual care concerns: No Meds Home Medications and Allergies Home Medications Medication Instructions Recorded Confirmed Type aspirin 81 mg tablet,delayed 81 mg PO DAILY 01/08/20 10/16/23 History release (Adult Low Dose Aspirin) cyanocobalamin (vitamin B-12) 1,000 mcg PO DAILY 12/02/21 10/16/23 History 1,000 mcg tablet (Vitamin B-12) rosuvastatin 20 mg tablet See Rx Instructions .Route 05/29/23 10/16/23 Rx .COMPLEX #90 tabs allopurinol 300 mg tablet See Rx Instructions .Route 06/10/23 10/16/23 Rx .COMPLEX #90 tabs amlodipine 5 mg tablet See Rx Instructions .Route 06/10/23 10/16/23 Rx .COMPLEX #90 tabs losartan 50 mg tablet See Rx Instructions .Route 06/10/23 10/16/23 Rx .COMPLEX #90 tabs tamsulosin 0.4 mg capsule (Flomax) 0.4 mg PO DAILY #90 caps 07/16/23 10/16/23 Rx clotrim
[2023-10-16 08:52] VITALS: BP 116/71; PULSE 79; RESP 19; O2SAT 98
[2023-10-16 09:02] VITALS: BP 132/85; PULSE 75; RESP 22; O2SAT 97
[2023-10-16 09:12] VITALS: BP 172/84; PULSE 72; RESP 19; O2SAT 97
== END 2023-10-16 09:27 | disposition home or self-care (01) ==
PROVIDERS: PCP Family Medicine; Visit Provider Surgery
PROC: 0DJD8ZZ Inspection of Lower Intestinal Tract, Via Natural or Artificial Opening Endoscopic (ICD-10-PCS; CPT 45378; principal; 2023-10-16 08:30)
DX: Z12.11 Encounter for screening for malignant neoplasm of colon (principal); K57.30 Diverticulosis of large intestine without perforation or abscess without bleeding; K64.8 Other hemorrhoids; Z80.0 Family history of malignant neoplasm of digestive organs; E78.2 Mixed hyperlipidemia; I10 Essential (primary) hypertension; N40.0 Benign prostatic hyperplasia without lower urinary tract symptoms; Z79.82 Long term (current) use of aspirin; F17.290 Nicotine dependence, other tobacco product, uncomplicated
CPT/HCPCS: G0105; J7120

== ENCOUNTER 2024-01-16 07:20 | Outpatient (CLI) | payer MEDICARE, SELFPAY ==
[2024-01-16 08:05] LABS: Rheumatoid Factor < 12.0 IU/ML (<12)
[2024-01-16 08:06] LABS: Alanine Aminotransferase 32 U/L (6-50); Albumin Level 4.6 g/dL (3.5-5.1); Alkaline Phosphatase 57 U/L (38-126); Aspartate Amino Transferase 29 U/L (17-59); Bilirubin,Total 0.6 mg/dL (0.2-1.3); Blood Urea Nitrogen 15 mg/dL (9-20); Calcium 9.4 mg/dL (8.4-10.2); Carbon Dioxide 28 mmol/L (22-30); Estimated Glomerular Filt Rate > 60; Glucose 107 mg/dL (65-110)
[2024-01-16 08:11] LABS: Erythrocyte Sedimentation Rate 12 mm/hr (0-20)
[2024-01-16 08:21] LABS: Anion Gap 9 mmol/L (4-12); Chloride 104 mmol/L (98-107); Potassium 3.7 mmol/L (3.4-5.0); Sodium 141 mmol/L (137-145)
[2024-01-17 23:43] LABS: HLA B27 NEGATIVE (NEGATIVE)
== END 2024-01-16 07:21 | disposition home or self-care (01) ==
LOC: ANHLAB 07:23
PROVIDERS: PCP Family Medicine; Visit Provider Family Medicine
DX: M45.9 Ankylosing spondylitis of unspecified sites in spine (principal); M54.9 Dorsalgia, unspecified; E78.2 Mixed hyperlipidemia; M25.541 Pain in joints of right hand; M25.542 Pain in joints of left hand
CPT/HCPCS: 36415; 80053; 85652; 86430; 86812

== ENCOUNTER 2024-09-18 07:05 | Outpatient (CLI) | payer MEDICARE, SELFPAY ==
[2024-09-18 08:14] LABS: Hematocrit 42.6 % (42.0-52.0); Hemoglobin 14.1 g/dL (14.0-18.0); Mean Corpuscular HGB Conc 33.1 g/dl (32-36); Mean Corpuscular Hemoglobin 31.9 pg (26-34); Mean Corpuscular Volume 96.4 fl (80-100); Mean Platelet Volume 10.1 fl (7.4-10.4); Platelet Count Result 228 k/mm3 (150-375); Red Blood Count 4.42 M/mm3 (4.6-6.20); Red Cell Distribution Width 13.1 % (11.5-14.5)
[2024-09-18 08:29] LABS: Hemoglobin A1C 5.6 % (<5.7)
[2024-09-18 08:33] LABS: Alanine Aminotransferase 47 U/L (6-50); Albumin Level 4.7 g/dL (3.5-5.1); Alkaline Phosphatase 52 U/L (38-126); Anion Gap 11 mmol/L (4-12); Aspartate Amino Transferase 38 U/L (17-59); Bilirubin,Total 0.5 mg/dL (0.2-1.3); Blood Urea Nitrogen 13 mg/dL (9-20); Calcium 9.9 mg/dL (8.4-10.2); Carbon Dioxide 24 mmol/L (22-30); Chloride 106 mmol/L (98-107); Cholesterol 145 mg/dL (0-200); Estimated Glomerular Filt Rate > 60; Glucose 105 mg/dL (65-110); HDL Direct 62 mg/dL; Potassium 3.8 mmol/L (3.4-5.0); Sodium 141 mmol/L (137-145); Triglycerides 124 mg/dL (<150); Uric Acid 4.3 mg/dL (3.5-8.5)
[2024-09-18 08:46] LABS: LDL Cholesterol Direct 51 mg/dL
[2024-09-18 09:04] LABS: Prostate Specific Antigen 2.1 ng/mL (< OR = 4.0)
[2024-09-23 11:04] LABS: Testosterone Free 72 pg/mL (30.0-135.0); Testosterone Total 413 ng/dL (250-1100)
== END 2024-09-18 07:06 | disposition home or self-care (01) ==
PROVIDERS: PCP Family Medicine; Visit Provider Psychiatry & Neurology Neurology
DX: R68.82 Decreased libido (principal); I10 Essential (primary) hypertension; E78.2 Mixed hyperlipidemia; R73.09 Other abnormal glucose; N40.1 Benign prostatic hyperplasia with lower urinary tract symptoms; R35.1 Nocturia; M1A.09X0 Idiopathic chronic gout, multiple sites, without tophus (tophi); G62.9 Polyneuropathy, unspecified; M62.50 Muscle wasting and atrophy, not elsewhere classified, unspecified site; R42 Dizziness and giddiness; R73.03 Prediabetes; Z12.5 Encounter for screening for malignant neoplasm of prostate; Z13.220 Encounter for screening for lipoid disorders
CPT/HCPCS: 36415; 80048; 80061; 80076; 82607; 83036; 84153; 84402; 84403; 84443; 84550; 85027; G0103

== ENCOUNTER 2024-10-22 06:45 | Outpatient (CLI) | payer MEDICARE, SELFPAY ==
--- OUTSIDE RECORDS SUMMARY | 2024-10-22 06:48 | XMS_ITS | Clinical Summary ---
Author Organization [facility] Address [address] [place] [address] Care Team Prov[address] Care Court Transcriber Name Role Phone Samm Null MD Primary Care Provider [phone] Allergies No known active allergies Medications allopurinoL (ZYLOPRIM) 300 mg tablet Take 300 mg by mouth daily. Active amLODIPine (NORVASC) 5 mg tablet Take 5 mg by mouth daily. Active losartan (COZAAR) 50 mg tablet Take 50 mg by mouth daily. Active rosuvastatin (CRESTOR) 20 mg tablet Take 20 mg by mouth daily. Active aspirin (ECOTRIN EC) 81 mg Tablet, Delayed Release (E.C.) Take 81 mg by mouth daily. Active tamsulosin (FLOMAX) 0.4 mg capsule Take 0.4 mg by mouth daily. Active cyclobenzaprine (FLEXERIL) 10 mg tablet Take 10 mg by mouth 3 times daily as needed for Spasm. Active meloxicam (MOBIC) 15 mg tablet Take 15 mg by mouth daily. Active MELATONIN ORAL Take 10 mg by mouth. Active azelastine HCl (AZELASTINE OP) by Ophthalmic route. Active naproxen sodium (ALEVE) 220 mg Tablet Take by mouth. Activ e gabapentin (NEURONTIN) 300 mg capsule Take 1 tab po at night for 3 days, then 1 tab po am & 1 tab po pm for 3 days, then 1 tab 3 times daily there after. 9 Active amoxicillin (AMOXIL) 500 mg capsule as needed 9 Active Active Problems Problem Noted Date Diagnosed Date Leukopenia 11/30/2020 Family History Medical History Relation Name Comments Colon Cancer Mother Lung Cancer Sister Relation Name Status Comments Brother Alive Father Mother Sister Son 1 Alive Son 2 Alive Social History Tobacco Use Types Packs/Day Years Used Date Smoking Tobacco: Never Smokeless Tobacco: Former Alcohol Use Standard Drinks/Week Comments Yes 0 (1 standard drink = 0.6 oz pur e alcohol) Sex and Gender Information Value Date Recorded Sex Assigned at Not on file Legal Sex Male 12:45 PM CDT Gender Identity Not on file Sexual Orientation Not on file Last Filed Vital Signs Vital Sign Reading Time Taken Comments Blood Pressure 153/80 06/17/2021 8:30 AM CDT Pulse 93 06/17/2021 8:30 AM CDT Temperature 36.7 C (98 F) 06/17/2021 8:30 AM CDT Respiratory Rate - - Oxygen Saturation 98% 06/17/2021 8:30 AM CDT Inhaled Oxygen Concentration - - Weight 88.7 kg (195 lb 9.6 oz) 06/17/2021 8:30 A M CDT Height 172.7 cm (5' 8) 06/17/2021 8:30 AM CDT Body Mass Index 29.74 06/17/2021 8:30 AM CDT Plan of Treatment Health Maintenance Due Date Last Done Comments DTAP/TDAP/TD VACCINES (1 - Tdap) 1968 FIT-DNA Q 3 years 1994 FIT/FOBT Q 1 year 1994 Flex Sig/CT Colonography Q 5 years 1994 PNEUMOCOCCAL VACCINE 50+ YEARS (1 of 1 - PCV) 06/07/19 00 ZOSTER VACCINE (1 of 2) 06/07/1999 RSV VACCINE (60+ or ) (1 - 1-dose 75+ series) 2024 INFLUENZA VACCINE (#1) 2024 COLORECTAL SCREENING 09/25/2027 09/24/2017 Colorectal Cancer Screening 09/25/2027 Insurance MEDICARE PART A AND B [facility] [id number] Transcriber Relationship Specialty Start Date End Date Samm Null MD [address] [place] [id number] PCP - General Family Practice 11/30/20
[2024-10-23 07:09] LABS: C-Reactive Protein, Cardiac 0.35 mg/L (0.00-3.00)
[2024-10-23 14:08] LABS: ANA by IFA Rfx Titer/Pattern Negative (.)
== END 2024-10-22 06:46 | disposition home or self-care (01) ==
PROVIDERS: PCP Family Medicine; Visit Provider Family Medicine
DX: M79.10 Myalgia, unspecified site (principal); M54.9 Dorsalgia, unspecified
CPT/HCPCS: 36415; 82085; 85652; 86038; 86141

== ENCOUNTER 2024-11-17 09:51 | Outpatient (CLI) | payer MEDICARE, SELFPAY ==
--- NOTE | ~2024-11-17 | XR_ITS ---
XR knee LT min 4V 11/17/2024 10:15 Indication: Left knee pain Procedure: 4 views left knee Comparison: 01/08/2020 Findings: Small joint effusion. Mild patellofemoral compartment osteoarthritis. No acute fracture or subluxation. No foreign bodies. Impression: 1: Mild patellofemoral compartment osteoarthritis. 2: Small joint effusion. Reviewed, dictated and finalized at location O. Impression: 1: Mild patellofemoral compartment osteoarthritis. 2: Small joint effusion.
--- OUTSIDE RECORDS SUMMARY | 2024-11-17 10:37 | XMS_ITS | Clinical Summary ---
Author Organization [facility] Address [address] [address] Care Team Providers Care Historiography Teacher Name Role Phone Samm Null MD Primary Care Provider [phone] Allergies No known active allergies Medications allopurinoL [...] 09/25/2027 Insurance MEDICARE PART A AND B [facility] [id number] Care Teams Historiography Teacher Relationship Specialty Start Date End Date Samm Null MD [address] [place] [id number] PCP - General Family Practice 11/30/20
== END 2024-11-17 09:52 | disposition home or self-care (01) ==
PROVIDERS: PCP Family Medicine; Visit Provider Family Medicine
DX: M17.12 Unilateral primary osteoarthritis, left knee (principal); M25.462 Effusion, left knee
CPT/HCPCS: 73564